=== PATIENT | male | born 1960 ===

== ENCOUNTER 2020-03-08 07:27 | Outpatient (CLI) | payer MEDICARE, MEDICAID, SELFPAY ==
--- NOTE | 2020-03-15 14:09 | WPDPFTINT ---
PFT Interpretation PFT Interpretation: This PFT met all criteria for ATS standards and reproducibility FEV/FVC post bronchodilator 75% of predicted FEV1 100% or 3.24 liters FVC 94% or 4.35 liters TLC 102% or 6.78 liters RV 103% RV/TLC 36% DLCO 91% when adjusted for alveolar volume but not adjusted for hemoglobin Flow volume loops were normal Impression: Normal PFT. Clinical correlation is advised.
== END 2020-03-08 07:28 | disposition home or self-care (01) ==
LOC: ANHPFT 07:32
PROVIDERS: PCP Nurse Practitioner; Visit Provider Nurse Practitioner
DX: Z77.090 Contact with and (suspected) exposure to asbestos (principal)
CPT/HCPCS: 94060; 94726; 94729